=== PATIENT | female | born 1945 | race African-American/Black ===

== ENCOUNTER 2018-01-31 15:57 | Inpatient (IN) | payer MEDICARE, OTHER ==
[~2018-01-31] VITALS: Ht 172.7 cm; Wt 64.9 kg
[2018-01-31 16:09] VITALS: BP 136/83
[2018-01-31] MEDS ORDERED: Tetanus/Diptheria/Pertussis Vaccine 0.5ml Syr IM ONE (16:30)
[2018-01-31 17:00] VITALS: BP 135/85
[2018-01-31 17:00] LABS: ANION GAP 10 mmol/L (5-15); BASOPHILS % (AUTO) 1.1 % (0.0-2.0); BLOOD UREA NITROGEN 18 mg/dL (7-18); CALCIUM 9.3 MG/DL (8.5-10.1); CARBON DIOXIDE 24 MMOL/L (21-32); CHLORIDE 107 MMOL/L (98-107); CREATININE 1.4 MG/DL (0.55-1.30); EOSINOPHILS % (AUTO) 0.2 % (0.0-3.0); HEMATOCRIT 35.7 % (37.0-47.0); HEMOGLOBIN 11.3 G/DL (12.0-16.0); LYMPHOCYTES % (AUTO) 21.1 % (20.0-45.0); MEAN CORPUSCULAR VOLUME 92 FL (80-99); MONOCYTES % (AUTO) 6.5 % (1.0-10.0); NEUTROPHILS % (AUTO) 71.2 % (45.0-75.0); PLATELET COUNT 193 K/UL (150-450); RED CELL DISTRIBUTION WIDTH 13.4 % (11.6-14.8); SODIUM 141 MMOL/L (136-145); WHITE BLOOD COUNT 8.5 K/UL (4.8-10.8)
[2018-01-31 17:14] LABS: ALANINE AMINOTRANSFERASE 24 U/L (12-78); ALBUMIN 3.4 G/DL (3.4-5.0); ALBUMIN/GLOBULIN RATIO 0.8 (1.0-2.7); ALKALINE PHOSPHATASE 50 U/L (46-116); ASPARTATE AMINO TRANSFERASE 41 U/L (15-37); BILIRUBIN,TOTAL 0.5 MG/DL (0.2-1.0); CKMB 0.5 NG/ML (0.0-3.6); CREATINE KINASE 158 U/L (26-308)
--- NOTE | 2018-01-31 17:31 | Diagnostic Imaging Report ---
Indication: Chest pain Technique: One view of the chest Comparison: none Findings: Lungs and pleural spaces are clear. Heart size is normal Impression: No acute process
--- NOTE | 2018-01-31 17:34 | Diagnostic Imaging Report ---
Indication: Unwitnessed syncopal episode with head trauma, left forehead laceration Technique: Continuous helical CT scanning of the head was performed without intravenous contrast material. Axial and coronal 5 mm sections were generated. Radiation dose was minimized using automated exposure control Dose: Total Dose Length Product - DLP 1371.[address] Dose Index - CTDIvol(s) 70.38 mGy. Comparison: Findings: The ventricular system is normal in size and configuration. There is no shift of midline structures. No abnormal extra-axial fluid collections are noted. There is no evidence of intracerebral bleeding. No other abnormal high or low density areas are noted within the brain. There is minimal left supraorbital scalp soft tissue swelling. Visualized orbits and sinuses are unremarkable. The mastoids are clear. The calvarium is intact. Impression: Normal CT scan of the head without contrast material. The CT scanner at [facility] is accredited by the [employer] and the scans are performed using protocols designed to limit radiation exposure to as low as reasonably achievable to attain images of sufficient resolution adequate for diagnostic evaluation.
[2018-01-31 18:00] VITALS: BP 140/106
[2018-01-31 18:23] LABS: BILIRUBIN, URINE NEGATIVE (NEGATIVE); COLOR,URINE PALE YELLOW; GLUCOSE, URINE (UA) NEGATIVE (NEGATIVE); KETONES,URINE NEGATIVE (NEGATIVE); LEUKOCYTE ESTERASE ,URINE 2+ (NEGATIVE); NITRITE,URINE NEGATIVE (NEGATIVE); PH,URINE 5 (4.5-8.0); PROTEIN,URINE NEGATIVE (NEGATIVE); UROBILINOGEN,URINE NORMAL MG/DL (0.0-1.0)
[2018-01-31 18:29] LABS: APPEARANCE,URINE SLIGHTLY CLOUDY
[2018-01-31 19:10] VITALS: BP 139/72
--- NOTE | 2018-01-31 19:21 | Emergency Room Report ---
History of Present Illness General Chief Complaint: Syncope Source: Patient, EMS Present Illness HPI 72-year-old female presents ED for evaluation. Came in by EMS status post syncopal episode. Happened today at home. States she hit her head on the door and fell. States she was feeling dizzy today. Upon arrival she has laceration above her left eye. Tetanus unknown. Denies pain. Denies fevers or chills. Denies shortness of breath or chest pain. No other aggravating relieving factors. Denies any other associated symptoms Allergies: Coded Allergies: No Known Allergies (Unverified , 10/13/17) Patient History Past Medical History: psych hx Past Surgical History: none Pertinent Family History: none Social History: Denies: smoking, alcohol use, drug use Now: No Immunizations: UTD Reviewed Nursing Documentation: PMH: Agreed; PSxH: Agreed Nursing Documentation-PMH Past Medical History: No History, Except For History Of Psychiatric Problem: Yes - schizoprenia Review of Systems All Other Systems: negative except mentioned in HPI Physical Exam Vital Signs Date Time Temp Pulse Resp B/P (MAP) Pulse Ox O2 Delivery O2 Flow Rate FiO2 01/31/18 15:57 99.0 69 14 126/82 99 Room Air Sp02 EP Interpretation: reviewed, normal General Appearance: no apparent distress, alert, GCS 15, non-toxic Head: normocephalic, other - 1cm laceration above L eyebrow Eyes: bilateral eye normal inspection, bilateral eye PERRL ENT: hearing grossly normal, normal pharynx, no angioedema, normal voice Neck: full range of motion, supple/symm/no masses Respiratory: chest non-tender, lungs clear, normal breath sounds, speaking full sentences Cardiovascular #1: regular rate, rhythm, no edema Cardiovascular #2: 2+ carotid (R), 2+ carotid (L), 2+ radial (R), 2+ radial (L) , 2+ dorsalis pedis (R), 2+ dorsalis pedis (L) Gastrointestinal: normal bowel sounds, non tender, soft, non-distended, no guarding, no rebound Rectal: deferred Genitourinary: normal inspection, no CVA tenderness Musculoskeletal: back normal, gait/station normal, normal range of motion, non- tender Neurologic: alert, oriented x3, responsive, motor strength/tone normal, sensory intact, speech normal Psychiatric: judgement/insight normal, memory normal, mood/affect normal, no suicidal/homicidal ideation Reflexes: 3+ bicep (R), 3+ bicep (L), 3+ tricep (R), 3+ tricep (L), 3+ knee (R) , 3+ knee (L) Skin: normal color, no rash, warm/dry, well hydrated Lymphatic: no adenopathy Procedures Laceration/Wound Repair Laceration/Wound Repair : Consent: Verbal Wound Location: head Wound's Depth, Shape: linear Wound Explored: clean Betadine Prep?: No Wound Debrided: minimal Wound Repaired With: Dermabond Layer Closure?: No Sterile Dressing Applied?: No Splint Applied?: No Sling Applied?: No Patient Tolerated: Well Complications: None Medical Decision Making Diagnostic Impression: Primary Impression: Syncope Qualified Codes: R55 - Syncope and collapse ER Course Hospital Course 72-year-old F presents ED s/p syncopal episode. Differential diagnoses include: AR/unstable angina, arrythmia, dehydration, CVA/ TIA Clinical course Patient placed on stretcher. 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 After initial history and physical I ordered labs, EKG, chest x-ray, IVFs, CT Brain labs reviewed- no leukocytosis, hemoglobin/hematocrit ok, electrolytes okay, troponins negative EKG- NSR, no acute ischemic changes intepreted by me Chest x-ray- no acute process CT brain-unremarkable laceration repaired with dermabond Given patient's significant risk factors and the fact the patient lives alone, patient would benefit from inpatient observation. Case discussed with Dr. Duval and he agreed to accept the patient to his service for further care and support I. I feel this is a highly complex case requiring extensive working including EKG/Rhythm strip, Xray/CT/US, Blood/urine lab work, repeat exams while in ED, and administration of strong opiates/narcotics for pain control, admission to hospital or close patient follow up. Diagnosis - syncope admitted to telemetry in serious condition Labs Test 01/31/18 16:18 01/31/18 18:00 White Blood Count 8.5 K/UL (4.8-10.8) Red Blood Count 3.90 M/UL (4.20-5.40) Hemoglobin 11.3 G/DL (12.0-16.0) Hematocrit 35.7 % (37.0-47.0) Mean Corpuscular Volume 92 FL (80-99) Mean Corpuscular Hemoglobin 29.0 PG (27.0-31.0) Mean Corpuscular Hemoglobin Concent 31.7 G/DL (32.0-36.0) Red Cell Distribution Width 13.4 % (11.6-14.8) Platelet Count 193 K/UL (150-450) Mean Platelet Volume 6.4 FL (6.5-10.1) Neutrophils (%) (Auto) 71.2 % (45.0-75.0) Lymphocytes (%) (Auto) 21.1 % (20.0-45.0) Monocytes (%) (Auto) 6.5 % (1.0-10.0) Eosinophils (%) (Auto) 0.2 % (0.0-3.0) Basophils (%) (Auto) 1.1 % (0.0-2.0) Sodium Level 141 MMOL/L (136-145) Potassium Level 4.0 MMOL/L (3.5-5.1) Chloride Level 107 MMOL/L (98-107) Carbon Dioxide Level 24 MMOL/L (21-32) Anion Gap 10 mmol/L (5-15) Blood Urea Nitrogen 18 mg/dL (7-18) Creatinine 1.4 MG/DL (0.55-1.30) Estimat Glomerular Filtration Rate mL/min (>60) Glucose Level 100 MG/DL (74-106) Calcium Level 9.3 MG/DL (8.5-10.1) Total Bilirubin 0.5 MG/DL (0.2-1.0) Aspartate Amino Transf (AST/SGOT) 41 U/L (15-37) Alanine Aminotransferase (ALT/SGPT) 24 U/L (12-78) Alkaline Phosphatase 50 U/L (46-116) Total Creatine Kinase 158 U/L (26-308) Creatine Kinase MB 0.5 NG/ML (0.0-3.6) Creatine Kinase MB Relative Index 0.3 Troponin I 0.000 ng/mL (0.000-0.056) Pro-B-Type Natriuretic Peptide 391 pg/mL (0-125) Total Protein 7.6 G/DL (6.4-8.2) Albumin 3.4 G/DL (3.4-5.0) Globulin 4.2 g/dL Albumin/Globulin Ratio 0.8 (1.0-2.7) Urine Color Pale yellow Urine Appearance Slightly cloudy Urine pH 5 (4.5-8.0) Urine Specific [place] 1.010 (1.005-1.035) Urine Protein Negative (NEGATIVE) Urine Glucose (UA) Negative (NEGATIVE) Urine Ketones Negative (NEGATIVE) Urine Blood Negative (NEGATIVE) Urine Nitrite Negative (NEGATIVE) Urine Bilirubin Negative (NEGATIVE) Urine Urobilinogen Normal MG/DL (0.0-1.0) Urine Leukocyte Esterase 2+ (NEGATIVE) Urine RBC 0-2 /HPF (0 - 2) Urine WBC 2-4 /HPF (0 - 2) Urine Squamous Epithelial Cells Few /LPF (NONE/OCC) Urine Bacteria Few /HPF (NONE) EKG Diagnostic Results Rate: normal Rhythm: NSR ST Segments: no acute changes ASA given to the pt in ED: No Rhythm Strip Diag. Results EP Interpretation: yes Rhythm: NSR, no PVC's, no ectopy Chest X-Ray Diagnostic Results Chest X-Ray Diagnostic Results : Chest X-Ray Ordered: Yes # of Views/Limited/Complete: 1 View Indication: Other - syncope EP Interpretation: Yes Interpretation: no consolidation, no effusion, no pneumothorax, no acute cardiopulmonary disease Impression: No acute disease Electronically Signed by: Electronically signed by Saeid Alva MD CT/MRI/US Diagnostic Results CT/MRI/US Diagnostic Results : Imaging Test Ordered: CT Head Impression no acute process Last Vital Signs Date Time Temp Pulse Resp B/P (MAP) Pulse Ox O2 Delivery O2 Flow Rate FiO2 01/31/18 19:10 99.1 63 18 139/72 (94) 99 01/31/18 18:33 Room Air Status: improved Disposition: ADMITTED INPATIENT Condition: Serious Scripts No Active Prescriptions or Reported Meds Referrals: NOT CHOSEN IPA/,REFERRING (PCP) Saeid Alva MD Jan 31, 2018 19:20
[2018-01-31] MEDS ORDERED: BENZTROPINE ME0.5 MG PO (20:28)
[2018-01-31] MEDS ORDERED: SEROQUEL100 MG ORAL (20:28)
[2018-01-31] MEDS ORDERED: HALOPERIDOL1 MG ORAL (20:28)
[2018-01-31] MEDS ORDERED: Morphine Sulfate 2mg/ml Inj IVP PRN (20:30)
[2018-02-01 07:34] LABS: BASOPHILS % (AUTO) 1.1 % (0.0-2.0); EOSINOPHILS % (AUTO) 1.1 % (0.0-3.0); HEMATOCRIT 28.5 % (37.0-47.0); HEMOGLOBIN 9.2 G/DL (12.0-16.0); LYMPHOCYTES % (AUTO) 31.6 % (20.0-45.0); MEAN CORPUSCULAR VOLUME 91 FL (80-99); MONOCYTES % (AUTO) 8.2 % (1.0-10.0); NEUTROPHILS % (AUTO) 58.1 % (45.0-75.0); PLATELET COUNT 174 K/UL (150-450); RED BLOOD COUNT 3.14 M/UL (4.20-5.40); WHITE BLOOD COUNT 6.6 K/UL (4.8-10.8)
[2018-02-01 07:46] LABS: ANION GAP 9 mmol/L (5-15); BLOOD UREA NITROGEN 19 mg/dL (7-18); CALCIUM 8.3 MG/DL (8.5-10.1); CARBON DIOXIDE 24 MMOL/L (21-32); CHLORIDE 111 MMOL/L (98-107); CREATININE 1.4 MG/DL (0.55-1.30); POTASSIUM 2.9 MMOL/L (3.5-5.1); SODIUM 143 MMOL/L (136-145)
--- NOTE | 2018-02-01 08:11 | History and Physical ---
History of Present Illness General Date patient seen: Feb 01, 2018 Time patient seen: 08:04 Reason for Hospitalization: Syncope Present Illness HPI 72 yo female with h/o bipolar presents s/p syncopal episode. States it happened at home, she hit her head on the floor. Patient states she felt dizzy, denies any LOC, denies fevers/chills. Dinah cp or sob. Patient denies any other medical conditions such as dm,htn,chf. Patient states she has been feeling weaker over the past 5-6 months. Patient is a very poor historian. Social hx reviewed, denies any smoking, alcohol use or drug use fam hx reviewed, denies knowing of any significant past fam hx code status reviewed, would like to remain FULL CODE Allergies: Coded Allergies: No Known Allergies (Unverified , 10/13/17) Medication History Scheduled Benztropine Mesylate* (Cogentin*), 1 MG PO BID, (Reported) Haloperidol* (Haldol*), 5 MG ORAL BID, (Reported) Quetiapine Fumarate* (Seroquel*), 100 MG ORAL HS, (Reported) Patient History History Provided By: Patient, Medical Record Healthcare decision maker Resuscitation status Full Code Advanced Directive on File Review of Systems All Other Systems: negative except mentioned in HPI ROS Narrative 14 Point ROS negative except per above HPI Physical Exam General Appearance: WD/WN, no apparent distress, alert Lines, tubes and drains: peripheral HEENT: normocephalic, mucous membranes moist, PERRL Neck: non-tender, normal alignment, supple, normal inspection Respiratory/Chest: chest wall non-tender, lungs clear, normal breath sounds, no respiratory distress, no accessory muscle use Cardiovascular/Chest: normal peripheral pulses, normal rate, regular rhythm Abdomen: normal bowel sounds, non tender, soft, no organomegaly, no mass Extremities: normal range of motion, non-tender, normal inspection, no calf tenderness, normal capillary refill Skin Exam: normal pigmentation, warm/dry 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, no motor/sensory deficits, alert, oriented x 3, responsive, normal mood/affect Last 24 Hour Vital Signs Date Time Temp Pulse Resp B/P (MAP) Pulse Ox O2 Delivery O2 Flow Rate FiO2 02/01/18 04:00 55 02/01/18 00:00 66 01/31/18 21:00 Room Air 01/31/18 20:00 72 01/31/18 19:35 Room Air 01/31/18 19:10 99.1 63 18 139/72 (94) 99 01/31/18 18:33 98.7 69 22 140/106 100 Room Air 01/31/18 18:00 98.7 66 21 140/106 99 Room Air 01/31/18 17:00 98.6 64 19 135/85 98 Room Air 01/31/18 16:09 98.8 67 18 136/83 100 Room Air 01/31/18 15:57 99.0 69 14 126/82 99 Room Air Intake and Output 01/31/18 02/01/18 19:00 07:00 Intake Total 1000 ml 320 ml Balance 1000 ml 320 ml Intake Oral 320 ml IV Total 1000 ml # Voids 1 3 Laboratory Tests Test 01/31/18 16:18 01/31/18 18:00 02/01/18 05:15 White Blood Count 8.5 K/UL (4.8-10.8) 6.6 K/UL (4.8-10.8) Red Blood Count 3.90 M/UL (4.20-5.40) L 3.14 M/UL (4.20-5.40) L Hemoglobin 11.3 G/DL (12.0-16.0) L 9.2 G/DL (12.0-16.0) L Hematocrit 35.7 % (37.0-47.0) L 28.5 % (37.0-47.0) L Mean Corpuscular Volume 92 FL (80-99) 91 FL (80-99) Mean Corpuscular Hemoglobin 29.0 PG (27.0-31.0) 29.2 PG (27.0-31.0) Mean Corpuscular Hemoglobin Concent 31.7 G/DL (32.0-36.0) L 32.1 G/DL (32.0-36.0) Red Cell Distribution Width 13.4 % (11.6-14.8) 13.0 % (11.6-14.8) Platelet Count 193 K/UL (150-450) 174 K/UL (150-450) Mean Platelet Volume 6.4 FL (6.5-10.1) L 6.2 FL (6.5-10.1) L Neutrophils (%) (Auto) 71.2 % (45.0-75.0) 58.1 % (45.0-75.0) Lymphocytes (%) (Auto) 21.1 % (20.0-45.0) 31.6 % (20.0-45.0) Monocytes (%) (Auto) 6.5 % (1.0-10.0) 8.2 % (1.0-10.0) Eosinophils (%) (Auto) 0.2 % (0.0-3.0) 1.1 % (0.0-3.0) Basophils (%) (Auto) 1.1 % (0.0-2.0) 1.1 % (0.0-2.0) Sodium Level 141 MMOL/L (136-145) 143 MMOL/L (136-145) Potassium Level 4.0 MMOL/L (3.5-5.1) 2.9 MMOL/L (3.5-5.1) L Chloride Level 107 MMOL/L (98-107) 111 MMOL/L (98-107) H Carbon Dioxide Level 24 MMOL/L (21-32) 24 MMOL/L (21-32) Anion Gap 10 mmol/L (5-15) 9 mmol/L (5-15) Blood Urea Nitrogen 18 mg/dL (7-18) 19 mg/dL (7-18) H Creatinine 1.4 MG/DL (0.55-1.30) H 1.4 MG/DL (0.55-1.30) H Estimat Glomerular Filtration Rate mL/min (>60) mL/min (>60) Glucose Level 100 MG/DL (74-106) 87 MG/DL (74-106) Calcium Level 9.3 MG/DL (8.5-10.1) 8.3 MG/DL (8.5-10.1) L Total Bilirubin 0.5 MG/DL (0.2-1.0) Aspartate Amino Transf (AST/SGOT) 41 U/L (15-37) H Alanine Aminotransferase (ALT/SGPT) 24 U/L (12-78) Alkaline Phosphatase 50 U/L (46-116) Total Creatine Kinase 158 U/L (26-308) Creatine Kinase MB 0.5 NG/ML (0.0-3.6) Creatine Kinase MB Relative Index 0.3 Troponin I 0.000 ng/mL (0.000-0.056) Pro-B-Type Natriuretic Peptide 391 pg/mL (0-125) H Total Protein 7.6 G/DL (6.4-8.2) Albumin 3.4 G/DL (3.4-5.0) Globulin 4.2 g/dL Albumin/Globulin Ratio 0.8 (1.0-2.7) L Urine Color Pale yellow Urine Appearance Slightly cloudy Urine pH 5 (4.5-8.0) Urine Specific [place] 1.010 (1.005-1.035) Urine Protein Negative (NEGATIVE) Urine Glucose (UA) Negative (NEGATIVE) Urine Ketones Negative (NEGATIVE) Urine Blood Negative (NEGATIVE) Urine Nitrite Negative (NEGATIVE) Urine Bilirubin Negative (NEGATIVE) Urine Urobilinogen Normal MG/DL (0.0-1.0) Urine Leukocyte Esterase 2+ (NEGATIVE) H Urine RBC 0-2 /HPF (0 - 2) Urine WBC 2-4 /HPF (0 - 2) Urine Squamous Epithelial Cells Few /LPF (NONE/OCC) Urine Bacteria Few /HPF (NONE) Height (Feet): 5 Height (Inches): 8.00 Weight (Pounds): 143 Medications Current Medications Medications (Trade) Dose Ordered Sig/Janee Route PRN Reason Start Time Stop Time Status Last Admin Dose Admin Acetaminophen (Tylenol) 650 mg Q6H PRN ORAL Mild Pain/Temp > 100.5 01/31/18 20:30 03/02/18 20:29 01/31/18 22:32 Morphine Sulfate (Morphine Sulfate) 1 mg Q6H PRN IVP For Pain 01/31/18 20:30 02/07/18 20:29 Ondansetron HCl (Zofran) 4 mg Q6H PRN IVP Nausea & Vomiting 01/31/18 19:15 03/02/18 19:14 Quetiapine Fumarate (SEROquel) 100 mg QHS ORAL 01/31/18 21:00 03/02/18 20:59 Sodium Chloride 1,000 ml @ 125 mls/hr Q8H IV 01/31/18 19:10 03/02/18 19:09 01/31/18 21:02 Assessment/Plan Status: stable Assessment/Plan Syncope - TTE - monitor vitals - fluids - likely due to dehydration and hypokalemia..likely malnourished - CTH reviewed, neg acute - ekg reviewed, no acute st t wave changes noted - cxr reviewed, neg acute - PT - lives alone Hypokalemia - K 2.9 - replenish, give 40 iv and PO - check mg level NESS - Cr 1.4 - unsure of baseline - fluids - monitor closely Bipolar - resume home meds Diet: Regular DVT Prophylaxis: SCD, HSQ Code Status: Full Hospital Classification Declaration: Based on this initial evaluation, and depending on the patient's clinical course, I anticipate that this patient will require hospitalization for 2-3 days for syncope workupand close respiratory/ hemodynamic monitoring. Disposition: Once the patient is stable to leave the hospital, I anticipate the patient will likely be discharged to the following environment: home with HH vs SNF I spent 71 minutes on this patient's case, and 40 minutes were dedicated to counseling and/or care coordination. Discussed with patient/family, nursing staff, SW/CM regarding clinical status, treatment course, and disposition planning. Time of note may not reflect time of encounter. --- Date of Discussion: 02/01/18 A valw-og-yedc discussion with the patient regarding the patient's advanced care planning took place during this hospitalization on the above date. The discussion included the explanation and discussion of advance directives and associated forms/documents, as well as the patient's current code status. We also discussed at length the patient's medical conditions (both acute and chronic), general prognosis, treatment options, and goals of care. The following summarizes the discussion: Advance Care Planning/Goals of Care: - Will attempt to fill out an AD and/or POLST with the patient prior to discharge, if not already completed - Continue current evaluation and management of any acute and chronic medical issues - Will continue to support the patient/family - Will continue to discuss both short- and long-term goals of care DPOA-HC/Surrogate Decision Maker: None currently appointed Code Status: Full Code AD Forms/Documents Completed: Deferred A total of 35 minutes was spent on this discussion, including counseling, answering questions, and completing, if any, pertinent advanced care planning forms/documents. Kelsey Browning MD Feb 01, 2018 08:11
[2018-02-01 09:27] VITALS: BP 130/97
[2018-02-01 12:05] VITALS: BP 118/77
--- NOTE | 2018-02-01 12:31 | Cardiology Report ---
APPROVED REPORT EXAM: Two-dimensional and M-mode echocardiogram with Doppler and color Doppler. INDICATION Syncope M-Mode DIMENSIONS IVSd1.1 (0.7-1.1cm)Left Atrium (MM)2.9 (1.6-4.0cm) LVDd4.6 (3.5-5.6cm)Aortic Root4.0 (2.0-3.7cm) PWd1.2 (0.7-1.1cm)Aortic Cusp Exc.2.0 (1.5-2.0cm) IVSs1.5 cm LVDs3.2 (2.5-4.0cm) PWs1.9 cm Technically difficult study poor endocardial definition Normal left ventricular chamber size, systolic function and wall motion except possible distal septal and inferirio wall hypokinesis. Left ventricular ejection fraction estimated to be 45-50%. No evidence of left ventricular hypertrophy. No evidence of pericardial effusion. All other cardiac chamber sizes are within normal limits. Focal aortic valve sclerosis with adequate cusp excursion. Thickened mitral valve leaflets with normal excursion. Mitral annulus and aortic root calcification. Pulmonic valve not well visualized. Normal tricuspid valve structure. IVC at normal size with physiologic collapse. A color flow and spectral Doppler study was performed and revealed: Mild aortic insufficiency . Mild mitral regurgitation. Mitral diastolic velocities suggest reduced left ventricular relaxation c/w mild LV diastolic dysfunction (Grade I ). Mild tricuspid regurgitation. Tricuspid systolic velocities suggests peak right ventricular systolic pressure of 39 mmHg, consistent with mild pulmonary hypertension .
[2018-02-01 20:00] VITALS: BP 126/68
[2018-02-02] VITALS: BP 125/75
[2018-02-02 03:59] VITALS: BP 124/76
--- NOTE | 2018-02-02 08:25 | General Progress Note ---
Assessment/Plan Status: stable Assessment/Plan Syncope - likely due to hypokalemia/hypomagnesemia and dehydration - TTE showing LVEF 45-50% - monitor vitals - CTH reviewed, neg acute - ekg reviewed, no acute st t wave changes noted - cxr reviewed, neg acute - PT - lives alone Hypokalemia - K 2.9 yesterday, gave iv and po total of 80meq kcl - recheck labs today Hypomagnasemia - Mg 1.4 - replenish now 4gm - monitor NESS - Cr 1.4 - seems like baseline - fluids - monitor closely Bipolar - resume home meds Diet: Regular DVT Prophylaxis: SCD, HSQ Code Status: Full Hospital Classification Declaration: Based on this initial evaluation, and depending on the patient's clinical course, I anticipate that this patient will require hospitalization for 2-3 days for syncope workupand close respiratory/ hemodynamic monitoring. Disposition: Once the patient is stable to leave the hospital, I anticipate the patient will likely be discharged to the following environment: home with vs SNF I spent 60 minutes on this patient's case, and 40 minutes were dedicated to counseling and/or care coordination. Discussed with patient/family, nursing staff, SW/CM regarding clinical status, treatment course, and disposition planning. Time of note may not reflect time of encounter. Subjective Date patient seen: Feb 02, 2018 Time patient seen: 08:22 Allergies: Coded Allergies: No Known Allergies (Unverified , 10/13/17) Subjective f/u hypokalemia, syncope, hypomagnasemia - replenished K - replenishing Mg - rechecking labs this AM pending - patient feeling better - pending PT evaluation ROS: 14 point ros negative except per the above Objective Last 24 Hour Vital Signs Date Time Temp Pulse Resp B/P (MAP) Pulse Ox O2 Delivery O2 Flow Rate FiO2 02/02/18 04:00 59 02/02/18 03:59 98.5 60 18 124/76 (92) 96 02/02/18 00:00 95 02/02/18 00:00 99.2 60 19 125/75 (92) 97 02/01/18 21:00 Room Air 02/01/18 20:00 65 02/01/18 20:00 99.2 63 18 126/68 (87) 96 02/01/18 16:00 66 02/01/18 12:05 99.2 71 19 118/77 (91) 99 02/01/18 12:00 62 02/01/18 09:27 97.2 71 20 130/97 (108) 94 02/01/18 09:00 Room Air Intake and Output 02/01/18 02/02/18 19:00 07:00 Intake Total 3000 ml 2058 ml Balance 3000 ml 2058 ml Intake Oral 3000 ml 360 ml IV Total 1698 ml # Voids 6 15 Height (Feet): 5 Height (Inches): 8.00 Weight (Pounds): 143 Objective General Appearance: WD/WN, no apparent distress, alert Lines, tubes and drains: peripheral HEENT: normocephalic, mucous membranes moist, PERRL Neck: non-tender, normal alignment, supple, normal inspection Respiratory/Chest: chest wall non-tender, lungs clear, normal breath sounds, no respiratory distress, no accessory muscle use Cardiovascular/Chest: normal peripheral pulses, normal rate, regular rhythm Abdomen: normal bowel sounds, non tender, soft, no organomegaly, no mass Extremities: normal range of motion, non-tender, normal inspection, no calf tenderness, normal capillary refill Skin Exam: normal pigmentation, warm/dry 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
[2018-02-02 10:03] VITALS: BP 116/76
[2018-02-02 11:20] LABS: ANION GAP 11 mmol/L (5-15); BLOOD UREA NITROGEN 19 mg/dL (7-18); CARBON DIOXIDE 22 MMOL/L (21-32); CHLORIDE 110 MMOL/L (98-107); CREATININE 1.3 MG/DL (0.55-1.30); POTASSIUM 4.3 MMOL/L (3.5-5.1); SODIUM 143 MMOL/L (136-145)
[2018-02-02 11:30] LABS: BASOPHILS % (AUTO) 1.3 % (0.0-2.0); EOSINOPHILS % (AUTO) 0.9 % (0.0-3.0); HEMATOCRIT 31.3 % (37.0-47.0); LYMPHOCYTES % (AUTO) 23.6 % (20.0-45.0); MEAN CORPUSCULAR VOLUME 90 FL (80-99); MONOCYTES % (AUTO) 7.8 % (1.0-10.0); NEUTROPHILS % (AUTO) 66.4 % (45.0-75.0); PLATELET COUNT 179 K/UL (150-450); RED BLOOD COUNT 3.47 M/UL (4.20-5.40); RED CELL DISTRIBUTION WIDTH 13.1 % (11.6-14.8); WHITE BLOOD COUNT 7.1 K/UL (4.8-10.8)
[2018-02-02 16:00] VITALS: BP 111/69
[2018-02-02 20:00] VITALS: BP 110/77
[2018-02-03] VITALS: BP 120/77
[2018-02-03 04:00] VITALS: BP 147/84
[2018-02-03 07:06] LABS: BASOPHILS % (AUTO) 1.1 % (0.0-2.0); EOSINOPHILS % (AUTO) 2.5 % (0.0-3.0); HEMATOCRIT 30.9 % (37.0-47.0); HEMOGLOBIN 9.8 G/DL (12.0-16.0); LYMPHOCYTES % (AUTO) 36.2 % (20.0-45.0); MEAN CORPUSCULAR VOLUME 92 FL (80-99); MONOCYTES % (AUTO) 9.2 % (1.0-10.0); NEUTROPHILS % (AUTO) 51.1 % (45.0-75.0); PLATELET COUNT 182 K/UL (150-450); RED BLOOD COUNT 3.37 M/UL (4.20-5.40); RED CELL DISTRIBUTION WIDTH 13.4 % (11.6-14.8); WHITE BLOOD COUNT 6.1 K/UL (4.8-10.8)
[2018-02-03 07:16] LABS: ANION GAP 8 mmol/L (5-15); BLOOD UREA NITROGEN 19 mg/dL (7-18); CALCIUM 8.8 MG/DL (8.5-10.1); CARBON DIOXIDE 22 MMOL/L (21-32); CHLORIDE 113 MMOL/L (98-107); CREATININE 1.3 MG/DL (0.55-1.30); POTASSIUM 4.1 MMOL/L (3.5-5.1); SODIUM 143 MMOL/L (136-145)
[2018-02-03 08:00] VITALS: BP 116/84
--- NOTE | 2018-02-03 08:01 | Discharge Summary ---
Discharge Summary Hospital Course Date of Admission Jan 31, 2018 at 17:00 Date of Discharge 02/03/18 Admitting Diagnosis Syncope HPI Karin Wright is a 72 year old female who was admitted on Jan 31, 2018 at 17: 00 for Syncope 72 yo female with h/o bipolar presents s/p syncopal episode. States it happened at home, she hit her head on the floor. Patient states she felt dizzy, denies any LOC, denies fevers/chills. Dinah cp or sob. Patient denies any other medical conditions such as dm,htn,chf. Patient states she has been feeling weaker over the past 5-6 months. Patient is a very poor historian. patient noted to be hypokalemia and have hypomagnasemia. K 2.8 and Mg 1.4, both replenished during admission and patient felt much better. Patient also worked with PT, did not rec patient for any additional therapy needs, no dme needed. Physical Exam: General Appearance: WD/WN, no apparent distress, alert Lines, tubes and drains: peripheral HEENT: normocephalic, mucous membranes moist, PERRL Neck: non-tender, normal alignment, supple, normal inspection Respiratory/Chest: chest wall non-tender, lungs clear, normal breath sounds, no respiratory distress, no accessory muscle use Cardiovascular/Chest: normal peripheral pulses, normal rate, regular rhythm Abdomen: normal bowel sounds, non tender, soft, no organomegaly, no mass Extremities: normal range of motion, non-tender, normal inspection, no calf tenderness, normal capillary refill Skin Exam: normal pigmentation, warm/dry 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 II-XII grossly normal, no motor/sensory deficits, alert, oriented x 3, responsive, normal mood/affect Hospital Course Syncope - likely due to hypokalemia/hypomagnesemia and dehydration - TTE showing LVEF 45-50% - monitor vitals - CTH reviewed, neg acute - ekg reviewed, no acute st t wave changes noted - cxr reviewed, neg acute - lives alone Hypokalemia - K 2.9 on admit gave iv and po total of 80meq kcl - repeat labs stable Hypomagnasemia - Mg 1.4 on admit - replenished - stable NESS - Cr 1.4, now 1.3, improved with hydration - seems like baseline - fluids - monitor closely Bipolar - resume home meds Diet: Regular DVT Prophylaxis: SCD, HSQ Code Status: Full Hospital Classification Declaration: Based on this initial evaluation, and depending on the patient's clinical course, I anticipate that this patient will require hospitalization for 2-3 days for syncope workupand close respiratory/ hemodynamic monitoring. I have reviewed all imaging, labs and medications Disposition: Once the patient is stable to leave the hospital, I anticipate the patient will likely be discharged to the following environment: home I spent 50 minutes on this patient's case, and discharge/dispo coordination. Discussed with patient/family, nursing staff, SW/CM regarding clinical status, treatment course, and disposition planning. Time of note may not reflect time of encounter. Discharge Medications Continued Medications: Benztropine Mesylate* (Cogentin*) 0.5 Mg Tablet 1 MG PO BID, TAB Haloperidol* (Haldol*) 1 Mg Tablet 5 MG ORAL BID, #20 TAB 0 Refills Quetiapine Fumarate* (Seroquel*) 100 Mg Tablet 100 MG ORAL HS, TAB Discharge Condition Upon Discharge: improving, stable Discharge Disposition Patient was discharged to home Discharge Diagnoses: (1) Bipolar disorder, unspecified (2) Hypokalemia (3) Hypomagnesemia (4) Syncope Kelsey Browning MD Feb 03, 2018 08:01
[2018-02-03 12:00] VITALS: BP 139/93
[2018-02-03 16:00] VITALS: BP 123/80
== END 2018-02-03 17:45 | disposition home or self-care (01) | DRG 641 ==
LOC: EDBD 15:57 → EMR 16:44 → 2E 17:00 → EDBEDREQ 18:02 → 2E 02-01 02:36
DX: E87.6 Hypokalemia (principal); N17.9 Acute kidney failure, unspecified; E86.0 Dehydration; E83.42 Hypomagnesemia; F31.9 Bipolar disorder, unspecified
CPT/HCPCS: 36415; 70450; 71045; 80048; 80053; 81003; 82550; 82553; 83735; 83880; 84484; 85025; 90471; 90715; 93005; 93306; 96360; 99285; J8499